=== PATIENT | female | born 1995 | race African-American/Black ===

== ENCOUNTER 2018-07-16 18:03 | Emergency (ER) | payer MEDICAID ==
[~2018-07-16] VITALS: Ht 167.6 cm; Wt 62.0 kg
[2018-07-16] MEDS ORDERED: DIPH25CA6 PO (18:10)
[2018-07-16] MEDS ORDERED: LORA1TAB PO (18:10)
[2018-07-16 19:29] LABS: BASOPHILS % 0.8 % (0.0-2.0); EOSINOPHILS % 1.5 % (0.0-5.0); HEMATOCRIT. 38.3 % (36.0-48.0); HEMOGLOBIN. 12.9 g/dL (12.0-16.0); LYMPHOCYTES % 14.2 % (20.0-50.0); MEAN CORPUSCULAR HEMOGLOBIN 28.6 pg (28.0-32.0); MEAN CORPUSCULAR VOLUME 84.9 fL (81.0-99.0); MEAN PLATELET VOLUME 11.2 fl (7.4-10.4); MONOCYTES % 6.7 % (2.0-8.0); NEUTROPHILS % 76.8 % (40.0-76.0); PLATELET 227 x1000/uL (130-400); RED BLOOD CELL COUNT 4.52 mill/uL (4.2-5.4); RED CELL DISTRIBUTION WIDTH 15.2 % (11.6-14.6)
[2018-07-16 19:32] LABS: CHLORIDE 104 mEq/L (98-107)
[2018-07-16 19:35] LABS: ETHANOL BLOOD < 10 mg/dL
[2018-07-16 22:31] VITALS: BP 111/69
== END 2018-07-16 22:56 | disposition home or self-care (01) ==
LOC: ER 18:03
DX: F23 Brief psychotic disorder (principal); F31.9 Bipolar disorder, unspecified
CPT/HCPCS: 36415; 80053; 80307; 80329; 85025; 99285; G0482

== ENCOUNTER 2022-08-30 23:41 | Emergency (ER) | payer MEDICARE, MEDICAID ==
[~2022-08-30] VITALS: Ht 170.2 cm; Wt 105.0 kg
[~2022-08-30 23:41] MED LIST: B25 PO; LORA1TAB PO
[2022-08-31] MEDS ORDERED: OLANZAPINE 10 MG/VIAL IM ONE (02:15)
[2022-08-31 02:32] LABS: CHLORIDE 103 mEq/L (98-107)
[2022-08-31 02:40] LABS: ETHANOL BLOOD < 10 mg/dL
[2022-08-31 02:44] LABS: BASOPHILS % 0.3 % (0.0-2.0); HEMOGLOBIN. 13.2 g/dL (12.0-16.0); LYMPHOCYTES % 20.5 % (20.0-50.0); MEAN CORPUSCULAR HEMOGLOBIN 29.2 pg (28.0-32.0); MEAN CORPUSCULAR VOLUME 88.2 fL (81.0-99.0); MEAN PLATELET VOLUME 11.8 fl (7.4-10.4); MONOCYTES % 5.4 % (2.0-8.0); NEUTROPHILS % 70.8 % (40.0-76.0); PLATELET 206 x1000/uL (130-400); RED BLOOD CELL COUNT 4.53 mill/uL (4.2-5.4); RED CELL DISTRIBUTION WIDTH 15.5 % (11.6-14.6)
[2022-08-31 02:52] LABS: *AMPHETAMINES SCREEN URINE NEGATIVE (NEGATIVE); *BARBITURATES SCREEN URINE NEGATIVE (NEGATIVE); *BENZODIAZEPINES SCREEN URINE NEGATIVE (NEGATIVE); *COCAINE SCREEN URINE NEGATIVE (NEGATIVE); METHADONE URINE SCREEN NEGATIVE (NEGATIVE); OPIATES URINE SCREEN NEGATIVE (NEGATIVE); PHENCYCLIDINE URINE SCREEN NEGATIVE (NEGATIVE)
[2022-08-31 03:03] LABS: HCG SCREEN NEGATIVE
[2022-08-31 03:22] LABS: CANNABINOID URINE SCREEN PRESUMTIVE POSITIVE (NEGATIVE)
[2022-08-31 03:35] LABS: CLARITY URINE CLEAR (CLEAR); COLOR URINE DARK YELLOW (YELLOW); KETONES URINE 1+ (NEGATIVE); LEUKOCYTE ESTERASE URINE 1+ (NEGATIVE); NITRITE URINE NEGATIVE (NEGATIVE); OCCULT BLOOD URINE NEGATIVE (NEGATIVE); PROTEIN URINE TRACE (NEGATIVE); SPECIFIC GRAVITY URINE 1.023 (1.005-1.030)
[2022-08-31] MEDS: OLANZAPINE 5MG TABLET PO SCH (18:00)
[2022-09-01] MEDS: OLANZAPINE 5MG TABLET PO SCH ×2 (09:00→17:00)
[2022-09-01] MEDS: DIVALPROEX SODIUM 500MG DR TABLET PO SCH (21:00)
[2022-09-02] MEDS: OLANZAPINE 5MG TABLET PO SCH ×2 (09:34→17:31)
[2022-09-02] MEDS: DIVALPROEX SODIUM 500MG DR TABLET PO SCH (09:34)
[2022-09-02 19:09] VITALS: BP 124/67
== END 2022-09-02 19:18 ==
LOC: ER 23:41
DX: F33.1 Major depressive disorder, recurrent, moderate (principal); R45.851 Suicidal ideations; R44.0 Auditory hallucinations; R94.31 Abnormal electrocardiogram [ECG] [EKG]; Z75.1 Person awaiting admission to adequate facility elsewhere; Z20.822 Contact with and (suspected) exposure to COVID-19; F12.90 Cannabis use, unspecified, uncomplicated
CPT/HCPCS: 36415; 80053; 80305; 80307; 80320; 80329; 81001; 81025; 84703; 85025; 96372; 99285; C9803; J3490; U0003; U0005; G0480